=== PATIENT | female | born 1995 | race Two or more races ===

== ENCOUNTER 2024-07-22 09:00 | Day surgery (SDC) | payer BC, OTHER, SELFPAY ==
[2024-07-19 15:36] LABS: HCG Qualitative,Urine Negative
[2024-07-22] VITALS (7 sets, daily range): BP systolic 104–143; BP diastolic 67–95; PULSE 73–126; RESP 11–23; TEMP 36.1–36.7; O2SAT 96–100; BMI 27.1
[2024-07-22] MEDS: MIDAZOLAM INJ 1 MG/ML VIAL 2 ML (ASD USE ONLY) 2 MG IV (10:44)
[2024-07-22] MEDS: DiphenhydrAMINE INJ 50 MG/ML VIAL 25 MG IV (10:44)
[2024-07-22] MEDS: fentaNYL CIT INJ 50 mCg/ML AMP 2ML (ASD USE ONLY) IV (10:44)
[2024-07-22] MEDS: ONDANSETRON INJ 2 MG/ML INJ 2 ML 4 MG IV (10:58)
== END 2024-07-22 11:39 | disposition home or self-care (01) ==
PROVIDERS: PCP Physician Assistant; Referring Provider Physician Assistant; Visit Provider Specialist
PROC: (CPT 43239; principal; 2024-07-22 10:45)
DX: K20.90 Esophagitis, unspecified without bleeding (principal); K29.70 Gastritis, unspecified, without bleeding; B49 Unspecified mycosis; K29.50 Unspecified chronic gastritis without bleeding; K31.89 Other diseases of stomach and duodenum
CPT/HCPCS: 43239; 81025; A4649; J1200; J2250; J2405; J3010

== ENCOUNTER → 2024-07-23 | Outpatient (CLI) | payer BC, SELFPAY ==
--- NOTE | 2024-07-23 07:15 | XR_ITS ---
Examination: Abdomen sonogram, Limited Date and time of exam: July 23, 2024 0707 hrs. Indications: Upper abdominal pain and heartburn beginning 2 weeks ago Technique: Real-time smith scale transabdominal sonographic images of the upper abdomen obtained. Findings: Normal gallbladder Normal common bile duct 0.4 cm Pancreatic head 2.1 cm Liver 14.6 cm mild fatty infiltration no focal liver lesions Normal hepatopedal portal venous flow Patent IVC Impression: Normal gallbladder Normal common bile duct Liver normal size no focal liver lesions
== END | disposition home or self-care (01) ==
LOC: CDIM 06:53
PROVIDERS: PCP Physician Assistant; Referring Provider Specialist; Visit Provider Specialist
DX: R14.0 Abdominal distension (gaseous) (principal)
CPT/HCPCS: 76705

== ENCOUNTER → 2025-05-14 | Outpatient (CLI) | payer BC, SELFPAY ==
--- NOTE | 2025-05-14 13:46 | XR_ITS ---
EXAMINATION: AP abdomen single view TECHNIQUE: AP supine abdomen single view April, 1355 hours INDICATIONS: Abdominal distention beginning 2 weeks ago. FINDINGS: Abundant stool throughout the colon. No obstruction No free air IMPRESSION: Abundant stool throughout the colon, no obstruction
== END | disposition home or self-care (01) ==
LOC: CDIM 13:40
PROVIDERS: PCP Physician Assistant; Referring Provider Specialist; Visit Provider Specialist
DX: K59.00 Constipation, unspecified (principal)
CPT/HCPCS: 74018